=== PATIENT | female | born 1960 ===

== ENCOUNTER 2016-11-19 10:00 | Inpatient (IN) | payer MEDICARE, MEDICAID ==
--- NOTE | 2016-11-19 10:41 | Rehab Joint Replacement Pre-Op ---
Rehab Joint Replacement Pre-Op - Pre-Op Visit Reviewed Items Scheduled for Post Op Visit: No Pre-Op Visit Comment: Not being seen at [facility] for rehab Jose M Hose/Garment Measurement TKR - Knee High: Yes Exercise Reviewed: Yes Stair Climbing: Yes Cane/Walker/Crutch Training: Yes Vend Equipment - Cane or Walker and OT Kit: N/A List of Venders in the Area: Yes Shower Chair Transfers: Yes Car Transfers: Yes Bed Transfers: Yes Medical History Forms Issued: N/A Functional Scale Forms Issued: N/A Additional Comments: Patient will be on main level with bathroom close, has four steps into house with rail and stairs to second level but will not have to use upstairs. Bathroom has raised toilet seat, handholds at commode and in shower, shower chair and has walker to use. Has moved any rugs in the way and furniture so will be able to move around house easily. Suggested practice with all equipment and getting into/out of bed and car and bathtub for safety after surgery.
[2016-11-30] MEDS ORDERED: MECLIZINE 25 MG TABLET PO ONE (06:00)
[2016-11-30] MEDS ORDERED: ACETAMINOPHEN 1,000 MG/100 ML BTL IV ONE (06:00)
[2016-11-30] MEDS ORDERED: FAMOTIDINE 20MG TABLET PO ONE (06:00)
[2016-11-30] MEDS ORDERED: VANCOMYCIN HCL 1,000 MG in 0.9 % SODIUM CHLORIDE 250ML 250 ML IVPB ONE (06:00)
[2016-11-30] MEDS ORDERED: CELECOXIB 100 MG CAPSULE PO ONE (06:00)
[2016-11-30] MEDS ORDERED: METOCLOPRAMIDE 10 MG TABLET PO ONE (06:00)
[2016-11-30] MEDS ORDERED: ONDANSETRON HCL IV 4 MG/2 ML VIAL IVP PRN (13:42)
[2016-11-30] MEDS ORDERED: PROMETHAZINE HCL 12.5 MG in 0.9 % SODIUM CHLORIDE 100ML 50 ML IVPB PRN (13:42)
[2016-11-30] MEDS ORDERED: MORPHINE SULFATE 5 MG/ML PFS IVP PRN ×3 (13:42)
[2016-11-30] MEDS ORDERED: AL HYDROX/MAG HYDROX 30ML UD PO PRN (13:42)
[2016-11-30] MEDS ORDERED: HYDROMORPHONE HCL 1 MG/ML CPJ IM PRN (13:42)
[2016-11-30] MEDS ORDERED: DIPHENHYDRAMINE HCL 25 MG CAPSULE PO PRN (13:42)
[2016-11-30] MEDS ORDERED: HYDROMORPHONE HCL 2 MG/ML VIAL IM PRN (13:42)
[2016-11-30] MEDS ORDERED: DEXTROSE 5 % AND 0.9 % NACL 1,000 ML IV PRN (13:42)
[2016-11-30] MEDS ORDERED: NALOXONE 0.4 MG/1 ML VIAL IVP PRN (13:42)
[2016-11-30] MEDS ORDERED: BISACODYL 10 MG SUPP RC PRN (13:42)
[2016-11-30] MEDS ORDERED: ZOLPIDEM TARTRATE 5 MG TABLET PO PRN (13:42)
[2016-11-30] MEDS ORDERED: MAGNESIUM HYDROXIDE 30 ML UDC PO PRN (13:42)
[2016-11-30] MEDS ORDERED: KETOROLAC 30 MG/ML VIAL IVP PRN ×2 (13:42)
[2016-11-30] MEDS ORDERED: ACETAMINOPHEN 325 MG TAB PO PRN (13:42)
[2016-11-30] MEDS ORDERED: ACETAMINOPHEN W/ CODEINE 300MG/30MG TABLET PO PRN ×2 (13:42)
[2016-11-30] MEDS ORDERED: HYDROCODONE/APAP 7.5/325MG TABLET PO PRN ×2 (13:42)
[2016-11-30] MEDS ORDERED: TRAMADOL HCL 50 MG TABLET PO PRN ×2 (13:42)
[2016-11-30] MEDS ORDERED: ACETAMINOPHEN W/ CODEINE 300MG/60MG TABLET PO PRN ×2 (13:42)
[2016-11-30] MEDS ORDERED: HYDROCODONE/APAP 5/325MG TABLET PO PRN ×2 (13:42)
[2016-11-30] MEDS ORDERED: METOCLOPRAMIDE HCL 10 MG/2 ML VIAL IVP PRN (13:42)
[2016-11-30] MEDS ORDERED: VANCOMYCIN HCL 1 GM VIAL IVPB ONE (14:00)
[2016-11-30] MEDS ORDERED: BUPIVACAINE LIPOSOME 266MG/20ML VIAL IV ONE (14:00)
[2016-11-30] MEDS ORDERED: TRANEXAMIC ACID 1,000 MG/10 ML ML IV ONE ×2 (14:00)
[2016-11-30] MEDS ORDERED: BUPIVACAINE 0.5% W/EPI MPF 30 ML VIAL IVP ONE ×2 (14:00)
[2016-11-30] MEDS ORDERED: LIDOCAINE 2% MDV (20MG/ML) 20ML VIAL IV ONE (16:00)
[2016-11-30] MEDS ORDERED: PNEUM 23-VAL ADULT IM ONE (18:29)
[2016-11-30] MEDS ORDERED: ALBUTEROL SULFATE (0.083%) 2.5 MG/3 ML NEB INH PRN (18:46)
[2016-11-30] MEDS: MORPHINE SULFATE 5 MG/ML PFS IVP PRN (20:35)
[2016-11-30] MEDS ORDERED: ARIPIPRAZOLE 5 MG PO SCH (22:00)
[2016-11-30] MEDS ORDERED: ARIPIPRAZOLE 20 MG PO SCH (22:00)
[2016-11-30] MEDS ORDERED: PATIENT OWN MED: ESOMEPRAZOLE 40 MG PO SCH (22:00)
[2016-11-30] MEDS ORDERED: TOPIRAMATE 50 MG PO SCH (22:00)
[2016-11-30] MEDS ORDERED: MIRTAZAPINE 15 MG PO SCH (22:00)
[2016-11-30] MEDS: DOCUSATE SODIUM 100 MG CAPSULE PO SCH (23:02)
[2016-11-30] MEDS: FERROUS SULFATE 325 MG TAB PO SCH (23:02)
[2016-11-30] MEDS: BACLOFEN 10 MG PO SCH (23:06)
[2016-11-30] MEDS: DIVALPROEX 500 MG PO SCH (23:06)
[2016-11-30] MEDS: PATIENT OWN MED: LORAZEPAM 0.5 MG PO SCH (23:09)
[2016-11-30] MEDS: PATIENT OWN MED: GABAPENTIN 600 MG PO SCH (23:09)
[2016-11-30] MEDS ORDERED: HYDROCODONE/APAP 10/325 TABLET PO PRN (23:48)
[2016-12-01] MEDS: VANCOMYCIN HCL 1 MG in 0.9 % SODIUM CHLORIDE 250ML 250 ML IVPB SCH ×2 (01:27→12:33)
[2016-12-01] MEDS: HYDROCODONE/APAP 10/325 TABLET PO PRN ×3 (01:28→10:33)
[2016-12-01 06:39] LABS: HEMATOCRIT 36.2 % (35.0-47.0); HEMOGLOBIN 11.7 gm/dl (11.6-16.0)
[2016-12-01] MEDS: MORPHINE SULFATE 5 MG/ML PFS IVP PRN (08:45)
[2016-12-01] MEDS ORDERED: RIVAROXABAN 10 MG TABLET PO SCH (10:00)
[2016-12-01] MEDS ORDERED: DESVENLAFAXINE 100 MG PO SCH (10:00)
[2016-12-01] MEDS ORDERED: ESTRADIOL 2 MG PO SCH (10:00)
[2016-12-01] MEDS ORDERED: CELECOXIB 100 MG CAPSULE PO SCH (10:00)
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
[2016-12-01] MEDS: FERROUS SULFATE 325 MG TAB PO SCH (10:33)
[2016-12-01] MEDS: DOCUSATE SODIUM 100 MG CAPSULE PO SCH (10:34)
[2016-12-01] MEDS: PATIENT OWN MED: GABAPENTIN 600 MG PO SCH ×2 (10:35→18:19)
[2016-12-01] MEDS: DIVALPROEX 500 MG PO SCH (10:35)
[2016-12-01] MEDS: BACLOFEN 10 MG PO SCH (10:36)
[2016-12-01] MEDS: PATIENT OWN MED: LORAZEPAM 0.5 MG PO SCH (10:38)
[2016-12-01] MEDS ORDERED: NITROGLYCERIN 0.4MG SL TABLET #25 BTL SL PRN (14:34)
[2016-12-01] MEDS ORDERED: OXYCODONE HCL 5 MG TABLET PO PRN ×2 (14:38→14:39)
[2016-12-01] MEDS ORDERED: OXYCODONE SR 20 MG TAB.ER.12H PO SCH (14:45)
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
--- NOTE | 2016-12-01 16:12 | Physical Therapy Tx Note ---
Physical Therapy Tx Note - Treatment Note Tolerated: Good (Patient is doing much better this afternoon and pain is under control. She is willing to get up and walk and do the stairs also. Technique was good and she has passed her skills- she really wants to go home today.) Total Time Spent With Patient: 30 Physical Therapy Tx Note: Detail (Patient seen in room, supine to sit with assist of trapeze only then scooted to edge of bed independently. Sit to stand with CGA and FWW, rail of bed, WBAT left LE. Ambulated with CGA to stairs in baum: about 100 feet, then rested in wheelchair for 2-3 minutes, ambulated down three steps with rail and folded walker, cues and CGA then pivoted around and ambulated back up three steps with good technique and min assist. Ambulated back to room with FWW and CGA, WBAT without a rest break then back into bed with very little assist with left LE. Performed exercises for knee: quad, ham and glut sets, heel slides, SLR, ankle pumps. Left patient with safety technician who was giving her parts for compression machine. Called later for nursing staff to hook her back up on all necessary machines. Call light and tray table close.) Physical Therapy Problem List: Detail (Severe limitations in function secondary to pain and meds aren't as strong as she is used to taking. Decreased mobility and gait at this time.) Physical Therapy Goals: Patient will demonstrate improved functional mobility into/out of bed, gait with FWW and steps prior to discharge home. Patient will be able to tolerate exercises for knee. Prognosis: Good (Patient has passed all skills and can be discharged from PT. We do have her on the schedule to see tomorrow am if she does not go home to increase functional mobility.) Physical Therapy Plan: Patient will be seen BID today and possibly tomorrow to make sure safe to go home with ; will be able to ambulate safely, demonstrate better bed mobility, transfers and steps enough to get into house.
[2016-12-01] MEDS ORDERED: FENTANYL PF 100MCG/2ML VIAL IV ONE (18:49)
[2016-12-01] MEDS ORDERED: *PACU ONLY* KETAMINE HCL 10 MG/ML (20ML) VIAL IV ONE (18:49)
[2016-12-01] MEDS ORDERED: PROPOFOL 10 MG/ML VIAL IV ONE (18:49)
[2016-12-01] MEDS ORDERED: EPHEDRINE SULFATE 50 MG/ML ML IV ONE (18:49)
[2016-12-01] MEDS ORDERED: MIDAZOLAM HCL 2MG/2ML VIAL IV ONE (18:49)
[2016-12-01] MEDS ORDERED: SIMVASTATIN 20 MG TABLET PO SCH (22:00)
[2016-12-01] MEDS ORDERED: PATIENT OWN MED: VENTOLIN HFA INH SCH (22:00)
[2016-12-01] MEDS ORDERED: PRILOCAINE TOP SCH (22:00)
[2016-12-01] MEDS ORDERED: LIDOCAINE TOP SCH (22:00)
--- NOTE | 2016-12-05 10:07 | Operative Note ---
DATE OF SURGERY: 11/30/2016 PREOPERATIVE DIAGNOSIS: Left knee arthrosis. POSTOPERATIVE DIAGNOSIS: Left knee arthrosis. OPERATION: Left total knee arthroplasty. Surgeon: Lon Herrera MD SOFTWARE PRODUCT SPECIALIST: Josy COMPLICATIONS: None. Blood Loss: Minimal. FINDINGS: [id number] medial compartment erosive arthrosis. COMPONENTS PLACED: A 2 g vancomycin [employer] size total knee arthroplasty system, size 5 femoral component, size 3 tibial baseplate and 13 mm thick tibial poly insert, and a 32 mm patellar component. Indication: This is a 56-year-old female with end-stage knee arthrosis. She was scheduled for total knee arthroplasty. I explained to her all risks, benefits, for her diagnosis and procedures, ____to infection, nerve injury, vessel injury, pain, numbness, tingling in her knee, periprosthetic fracture, need for resection, arthroplasty components infected or loosen. All her questions were answered and her course was outlined and she agreed to proceed. PROCEDURE: The patient brought to the OR and placed in the spinal position for athroscopic surgery. Spinal anesthesia induced and her left lower extremity and knee prepped and draped in sterile fashion. The left knee was prepped again with Chloraprep, and draped. Intraoperative timeout was performed. Next, the knee incision and knee was marked and . The leg was exsanguinated with Esmarch. The knee was flexed and tourniquet inflated to pressure. Next, skin and subcutaneous dissection down to the medial and lateral skin flaps . Incised the capsule medially to the medial border of patella to the tibial tubercle. Incised vastus medialis in line with the fibers in mid vastus approach. Everted the patella, partially resected retropatellar fat pad. Elevated capsule subperiosteally medially and drilled intracondylar drill hole, inserted intramedullary guide rosa and cutting block. Aligned distal femoral condyles and then pinned it in place in the +2 mm position. Cut distal femoral condyles. We then placed a sizing jig to distal femoral condyle and sized beyond a size 5. Through this, we placed pin holes. We placed a size 5 cutting jig, dialed in the anterior cuts so it would come out flush without notching, cut the anterior cuts with a good cut, cut and pinned it and cut the remainder of chamber cuts. Placed the size 5 femoral component, seated it, centered it, pinned it. We removed osteophytes at the periphery, inserted a resection , reamed down and box osteotome with the cruciate bone block. Next done was the tibia. Placed the extraalignment jig in the tibia, seated the and tubercle groove 2 fingerbreadths distal to the anterior tibial cortex, referenced for a 7 mm cut off the higher lateral plateau. We pinned that in place provisionally. We then rechecked alignment of cuts with a drop rosa, centered until we had tibial anatomic access and crosspinned it and cut the tibia. Next, we removed osteophytes posterior femoral condyles. Checked the flexion/extension gaps. Had symmetric flexion/extension gaps with a 13 mm poly insert to allow for 2-3 mm varus/valgus, flexion/extension. Next, we took the knee into flexion. Sized the tibial baseplate size 3. Replaced all trial components. Set the rotation tibial baseplate again extension using alignment rosa centered on the hip joint and ankle joint. Marked electrocautery hale on the anterior tibial cortex off the laser hale with tibial baseplate. Attention turned to patella. Next, we measured patella to be 22 mm with the cutting jig at 13 mm to allow for 9 mm thick insert. Cut the patella. Chamfered off the lateral patellar facet. Sized to be 32. Next we placed a trial patella and did a trial range of motion. The patella tracked nicely, full flexion, anterior flexion 140 to 150 degrees. Next, we mixed cement and then next we placed the tibial component, centered it off the previously-placed electrocautery hale and pinned in place and reamed out and punched out the keel. Placed a bone plug in femoral canal hole. Irrigated the bony surface copiously with pulse lavage and antibiotic solution. Pre all surfaces. We changed gloves and gowns and clean sheet and then placed trial tibial poly liner. We held the knee in extension and clamped down the patellar components with cement, hardened and removed excess cement. Once cement hardened, we took the knee in flexion, distracted the knee, sponge and removed any excess cement around the edges. Components irrigated copiously. We injected, needling the entire operative site with 0.5% Marcaine with epi, 2 g of tranexamic acid and Exparel around the posterior, medial, and lateral capsule, periosteum, the vastus medialis and subcutaneous tissues. Then we inserted the real tibia poly insert, verified that it was interlocked medially. We found our range of motion was the same. Irrigated. Closed with #2 Quill suture. Irrigated again. Closed with 2-0 Vicryl and bradley and injected with 0.5% Marcaine with epi. Sterile dressing applied. The patient tolerated the procedure well with no apparent complications. Sponge and counts correct. Recovery room stable. Can be discharged to the Center and likely discharged in 1-2 days home. CYNTHIA
== END 2016-12-01 18:50 | disposition home health service (06) | DRG 470 ==
LOC: MEDSURG 11-30 10:28
PROVIDERS: ADMIT Orthopaedic Surgery; ATTEND Orthopaedic Surgery
PROC: 0SRD0J9 Replacement of Left Knee Joint with Synthetic Substitute, Cemented, Open Approach (ICD-10-PCS; principal; 2016-11-30 14:30)
DX: M17.12 Unilateral primary osteoarthritis, left knee (principal); I10 Essential (primary) hypertension
CPT/HCPCS: 85014; 85018; 97110; 97116; 97165; J1885; J2405; J7042; J7050